=== PATIENT | male | born 1965 | race Caucasian/White ===

== ENCOUNTER 2019-01-07 12:13 | Emergency (ER) | payer MEDICAID ==
[~2019-01-07] VITALS: Ht 170.2 cm; Wt 56.8 kg
--- NOTE | 2019-01-07 12:28 | NUR ---
ERP AT BS.
[2019-01-07] MEDS ORDERED: MORPHINE SULFATE 4 MG/ML, 1ML IVPush PRN (12:30)
[2019-01-07] MEDS ORDERED: KETOROLAC 30 MG/1 ML IVPush ONE (12:30)
[2019-01-07] MEDS ORDERED: SODIUM CHLORIDE FLUSH 10ML SYR IVF ONE (12:30)
[2019-01-07 12:45] LABS: BASOPHILS # (AUTO) 0.01 x10^3/uL (0-0.1); BASOPHILS % (AUTO) 0 % (0-1); EOSINOPHILS # (AUTO) 0.09 x10^3/uL (0-0.4); EOSINOPHILS % (AUTO) 1 % (1-7); LYMPHOCYTES # (AUTO) 2.13 x10^3/uL (1-3.4); LYMPHOCYTES % (AUTO) 23 % (22-44); MD NO; MEAN CORPUSCULAR HEMOGLOBIN 31.3 pg (27.5-34.5); MEAN CORPUSCULAR VOLUME 94.9 fL (81-97); MEAN PLATELET VOLUME 8.7 fL (7.4-10.4); MONOCYTES # (AUTO) 0.83 x10^3/uL (0.2-0.8); MONOCYTES % (AUTO) 9 % (2-9); NEUTROPHILS # (AUTO) 6.42 x10^3/uL (1.8-6.8); NEUTROPHILS % (AUTO) 68 % (42-75); PLATELET COUNT 231 x10^3/uL (130-400); RED BLOOD COUNT 5.04 x10^6/uL (4.38-5.82); RED CELL DISTRIBUTION WIDTH 13.4 % (9.4-14.8)
--- NOTE | 2019-01-07 12:51 | NUR ---
BREAK RN: PT WAS NOTIFIED OF NEED FOR URINE SPECIMEN; STATES NO URGE TO VOID. IV ATTEMPTED X 2, PT DEMANDED REMOVAL OF SUCCESSFUL IV PLACEMENT BOTH TIMES. DR JAUREGUI CONSULTED; IV PAIN MEDS TO BE CHANGED TO IM/ORAL.
[2019-01-07 12:58] LABS: ALANINE AMINOTRANSFERASE 89 U/L (12-78); ALBUMIN 3.9 g/dL (3.4-5.0); ANION GAP 3 mmol/L (5-15); CALCIUM 8.8 mg/dL (8.5-10.1); CHLORIDE 104 mmol/L (98-107); CREATININE 1.01 mg/dL (0.7-1.3)
[2019-01-07] MEDS ORDERED: KETOROLAC 30 MG/1 ML IM ONE (13:00)
[2019-01-07] MEDS ORDERED: ONDANSETRON ODT 4 MG PO ONE (13:00)
[2019-01-07] MEDS ORDERED: OXYcodone/APAP 5/325MG TABLET PO ONE (13:00)
[2019-01-07 13:01] LABS: ALKALINE PHOSPHATASE 106 U/L (45-117); BILIRUBIN,TOTAL 1.2 mg/dL (0.2-1.0); TOTAL PROTEIN 8.4 g/dL (6.4-8.2)
[2019-01-07] MEDS ORDERED: ONDANSETRON ODT 4 MG ONE (13:10)
[2019-01-07] MEDS ORDERED: OXYcodone/APAP 5/325MG TABLET ONE (13:10)
[2019-01-07] MEDS ORDERED: KETOROLAC 60 MG/2 ML ONE (13:10)
--- NOTE | 2019-01-07 13:20 | NUR ---
PT MEDICATED FOR PAIN PER ORDERS. TO CT VIA [facility]. Addendum: 01/07/19 at 1321 by ENRICO SURAY AT .
--- NOTE | 2019-01-07 13:39 | NUR ---
REMINDED PT OF NEED FOR URINE SAMPLE, HE STATES HE "CAN'T PEE YET". WATER PROVIDED TO PT.
[2019-01-07 14:29] LABS: CULTURE INDICATED? YES; MICROSCOPIC INDICATED
[2019-01-07 15:00] VITALS: BP 143/81
--- NOTE | 2019-01-07 15:13 | NUR ---
DISCHARGE INSTRUCTIONS REVIEWED Addendum: 01/07/19 at 1519 by HBENSON PT AMBULATED OUT OF ED WITH FRIEND WITHOUT DIFFICULTY.
== END 2019-01-07 15:15 | disposition home or self-care (01) ==
LOC: ED 12:53
DX: M54.5 Low back pain (principal); R10.9 Unspecified abdominal pain
CPT/HCPCS: 36415; 74176; 80053; 81001; 83690; 85025; 87086; 96372; 99284; J1885; Q0162